=== PATIENT | female | born 1960 | race Caucasian/White ===

== ENCOUNTER 2017-07-03 09:19 | Outpatient (CLI) | payer BC | END 2017-07-03 09:20 | disposition home or self-care (01) | LOC: BICMAMMO 09:19 | PROVIDERS: ATTEND Internal Medicine Hematology & Oncology | DX: C50.512 Malignant neoplasm of lower-outer quadrant of left female breast (principal) | CPT/HCPCS: 77066; G0279 ==

== ENCOUNTER 2018-07-07 08:12 | Outpatient (CLI) | payer BC ==
--- NOTE | 2018-07-08 15:32 | MMO ---
MAMMO Bilat Diag [facility]. CLINICAL HISTORY: Patient is 58 years old and is seen for diagnostic exam. The patient has the following family history of breast cancer: mother, at age 58 and maternal grandmother, at age 91. The patient has a history of Segmental Mastectomy procedure revealed invasive ductal left breast carcinoma in July,; Ultrasound Guided Core Biopsy procedure revealed invasive ductal left breast carcinoma in June, and malignant (generic) in the left breast at age 55. The patient has a history of right Stereotatic Biopsy in 2017 - benign, left Ultrasound Guided Core Biopsy in June, and left Lumpectomy in June, - malignant. VIEWS: The views performed were: bilateral craniocaudal with tomosynthesis; bilateral mediolateral oblique with tomosynthesis; and bilateral mediolateral. FILMS COMPARED: The present examination has been compared to prior imaging studies performed at [facility] on 01/29/2000, 10/27/2000, 11/20/2001, 02/02/2003, 02/03/2003, 09/22/2003, 02/14/2005, 05/28/2006, 10/01/2007, 02/14/2009, 08/27/2012, 04/05/2014, 06/20/2015, 06/22/2015, 06/25/2016 and 07/03/2017. MAMMOGRAM FINDINGS: There are scattered fibroglandular densities. Finding 1: There is a stable biopsy clip seen in the right breast. Finding 2: There is a stable post-surgical scar seen in the left breast. Finding 3: No suspicious calcifications or masses are seen. IMPRESSION: ALL ABOVE FINDINGS ARE BENIGN. A ROUTINE FOLLOW-UP MAMMOGRAM IN 1 YEAR IS RECOMMENDED. THE RESULTS OF THIS EXAM WERE SENT TO THE PATIENT. ACR BI-RADS Category 2 - Benign finding MAMMOGRAPHY NOTE: 1. A negative mammogram report should not delay a biopsy if a dominant of clinically suspicious mass is present. 2. Approximately 10% to 15% of breast cancers are not detected by mammography. 3. Adenosis and dense breasts may obscure an underlying neoplasm.
== END 2018-07-07 08:13 | disposition home or self-care (01) ==
LOC: BICMAMMO 08:12
PROVIDERS: ATTEND Internal Medicine Hematology & Oncology
DX: Z08 Encounter for follow-up examination after completed treatment for malignant neoplasm (principal); R92.2 Inconclusive mammogram; Z85.3 Personal history of malignant neoplasm of breast; Z98.890 Other specified postprocedural states; Z80.3 Family history of malignant neoplasm of breast
CPT/HCPCS: 77066; G0279

== ENCOUNTER 2019-07-20 08:15 | Outpatient (CLI) | payer BC ==
--- NOTE | 2019-07-20 08:55 | MMO ---
Bilateral MAMMO Bilat Diag [facility]. CLINICAL HISTORY: Patient is 59 years old and is seen for diagnostic exam. The patient has the following family history of breast cancer: mother, at age 58 and maternal grandmother, at age 91. The patient has a history of Segmental mastectomy. procedure revealed invasive ductal left breast carcinoma in July,; Ultrasound guided core biopsy procedure revealed invasive ductal left breast carcinoma in June, and malignant (generic) in the left breast at age 55. The patient has a history of right Stereotatic Biopsy in 2017 - benign, left Ultrasound Guided Core Biopsy in June, and left Lumpectomy in June, - malignant. VIEWS: The views performed were: bilateral craniocaudal with tomosynthesis; bilateral mediolateral oblique with tomosynthesis; and bilateral mediolateral with tomosynthesis. FILMS COMPARED: The present examination has been compared to prior imaging studies performed at [facility] on 06/25/2016, 07/03/2017 and 07/07/2018. This study has been interpreted with the assistance of computer-aided detection. MAMMOGRAM FINDINGS: There are scattered fibroglandular densities. Finding 1: There is an area of architectural distortion with associated post-surgical scar seen in the left breast. Finding 2: There is a stable post-surgical scar seen in the left breast. Finding 3: No suspicious calcifications or masses are seen. There are no suspicious masses, suspicious calcifications, or new areas of architectural distortion. IMPRESSION: THERE IS NO MAMMOGRAPHIC EVIDENCE OF MALIGNANCY. A ROUTINE FOLLOW-UP MAMMOGRAM IN 1 YEAR IS RECOMMENDED. THE RESULTS OF THIS EXAM WERE SENT TO THE PATIENT. ACR BI-RADS Category 2 - Benign finding MAMMOGRAPHY NOTE: 1. A negative mammogram report should not delay a biopsy if a dominant of clinically suspicious mass is present. 2. Approximately 10% to 15% of breast cancers are not detected by mammography. 3. Adenosis and dense breasts may obscure an underlying neoplasm. Reported by: JOSHUA MAHONEY MD Electonically Signed: [id number]
== END 2019-07-20 08:16 | disposition home or self-care (01) ==
LOC: BICMAMMO 08:15
PROVIDERS: ATTEND Internal Medicine Hematology & Oncology
DX: Z08 Encounter for follow-up examination after completed treatment for malignant neoplasm (principal); Z85.3 Personal history of malignant neoplasm of breast
CPT/HCPCS: 77066; G0279

== ENCOUNTER 2020-07-26 08:24 | Outpatient (CLI) | payer BC | END 2020-07-26 08:25 | disposition home or self-care (01) | LOC: BICMAMMO 08:24 | PROVIDERS: ATTEND Internal Medicine Hematology & Oncology | DX: C50.512 Malignant neoplasm of lower-outer quadrant of left female breast (principal) | CPT/HCPCS: 77066; G0279 ==

== ENCOUNTER 2020-10-12 10:38 | Inpatient (IN) | payer BC ==
[~2020-10-12 10:38] MED LIST: Iopamidol-370 76% 500 ML 1 ML ONE
[2020-10-12 11:58] LABS: #Monocytes 0.3 thou/uL (0.11-0.59); #Neutrophils 12.5 thou/uL (1.40-6.50); %Eosinophils 0.3 % (0.0-10.0); %Lymphocytes 7.2 % (21.0-51.0); %Monocytes 1.9 % (0.0-10.0); %Neutrophils 90.7 % (42.0-75.0); Hemoglobin 12.6 g/dL (12.0-16.0); Mean Corpuscular HGB CONC 32.7 g/dL (32.0-36.0); Mean Corpuscular Hemoglobin 29.6 pg (27.0-31.0); Mean Corpuscular Volume 90.5 fL (78.0-98.0); Mean Platelet Volume 7.5 fL (7.4-10.4); Platelet Count 311 thou/uL (130-400); RBC Distribution Width 11.7 % (11.5-14.5); Red Blood Cell (RBC) Count 4.27 mill/uL (4.20-5.40); White Blood Cell (WBC) Count 13.7 thou/uL (4.8-10.8)
[2020-10-12 12:22] LABS: ALT (SGPT) 39 U/L (8-55); AST (SGOT) 44 U/L (5-34); Albumin 3.6 g/dL (3.5-5.0); Alkaline Phosphatase 97 U/L (40-110); Anion Gap 18 mmol/L (10-20); BUN (Urea Nitrogen) 12 mg/dL (9.8-20.1); Bilirubin, Total 0.4 mg/dL (0.2-1.2); Calc. Creatinine Clearance 0 mL/min (70-130); Calcium 9.2 mg/dL (7.8-10.44); Carbon Dioxide 22 mmol/L (22-29); Chloride 98 mmol/L (98-107); Globulin 3.9 g/dL (2.4-3.5); Glucose 151 mg/dL (70-105); Lipase 18 U/L (8-78); Potassium 3.6 mmol/L (3.5-5.1); Protein, Total 7.5 g/dL (6.0-8.3); Sodium 134 mmol/L (136-145)
[2020-10-12] MEDS ORDERED: Dexamethasone 10 MG/ML VIAL ONE (13:39)
[2020-10-12] MEDS ORDERED: Ondansetron PF 4 MG/2 ML Vial IVP PRN (16:54)
[2020-10-12] MEDS ORDERED: Ondansetron ODT 4 MG TAB PO PRN (16:54)
[2020-10-12] MEDS ORDERED: Enoxaparin Sodium 40 MG/0.4 ML SYRINGE SC SCH (17:00)
[2020-10-12 18:22] VITALS: BMI 28.2
[2020-10-12] MEDS: Melatonin 3 MG TAB PO SCH (20:48)
[2020-10-12] MEDS: Acetaminophen 325 MG TAB PO PRN (21:12)
[2020-10-13] MEDS: Guaifenesin DM 100-10/5 ML UDCUP PO PRN ×4 (06:14→20:21)
[2020-10-13 06:30] LABS: Anion Gap 15 mmol/L (10-20); BUN (Urea Nitrogen) 12 mg/dL (9.8-20.1); Calc. Creatinine Clearance 102 mL/min (70-130); Calcium 9.6 mg/dL (7.8-10.44); Carbon Dioxide 22 mmol/L (22-29); Chloride 105 mmol/L (98-107); Glucose 167 mg/dL (70-105); Sodium 138 mmol/L (136-145)
[2020-10-13 06:32] LABS: Hemoglobin 13.9 g/dL (12.0-16.0); Mean Corpuscular Hemoglobin 29.1 pg (27.0-31.0); Mean Corpuscular Volume 90.9 fL (78.0-98.0); Mean Platelet Volume 7.4 fL (7.4-10.4); Platelet Count 335 thou/uL (130-400); RBC Distribution Width 11.8 % (11.5-14.5); Red Blood Cell (RBC) Count 4.76 mill/uL (4.20-5.40); White Blood Cell (WBC) Count 10.3 thou/uL (4.8-10.8)
[2020-10-13 06:48] LABS: Band 5 % (5-11); Lymphocytes 6 % (21-51); MDiff Complete? YES; Myelocyte 1 % (0-0); Neutrophil 88 % (42-75)
[2020-10-13] MEDS: Ascorbic Acid 500 mg Chewable Tablet PO SCH (09:09)
[2020-10-13] MEDS: Cholecalciferol 1,000 UNITS (25 MCG) TAB PO SCH (09:10)
[2020-10-13] MEDS: Enoxaparin Sodium 40 MG/0.4 ML SYRINGE SC SCH (09:10)
[2020-10-13] MEDS: Dexamethasone 4 mg/ml Vial SLOW IVP SCH (09:10)
[2020-10-13] MEDS: Zinc Sulfate 220 MG CAP PO SCH (09:10)
[2020-10-13] MEDS: Acetaminophen 325 MG TAB PO PRN (20:21)
[2020-10-13] MEDS: Melatonin 3 MG TAB PO SCH (20:21)
[2020-10-14] MEDS: Guaifenesin DM 100-10/5 ML UDCUP PO PRN ×2 (05:40→10:58)
[2020-10-14 06:55] LABS: #Lymphocytes 1.5 thou/uL (1.20-3.40); #Monocytes 0.7 thou/uL (0.11-0.59); #Neutrophils 12.4 thou/uL (1.40-6.50); %Basophils 0.1 % (0.0-1.0); %Eosinophils 0.2 % (0.0-10.0); %Monocytes 4.9 % (0.0-10.0); %Neutrophils 84.8 % (42.0-75.0); Hemoglobin 12.7 g/dL (12.0-16.0); Mean Corpuscular HGB CONC 33.7 g/dL (32.0-36.0); Mean Corpuscular Hemoglobin 30.3 pg (27.0-31.0); Mean Corpuscular Volume 89.7 fL (78.0-98.0); Mean Platelet Volume 7.4 fL (7.4-10.4); Platelet Count 377 thou/uL (130-400); RBC Distribution Width 11.6 % (11.5-14.5); Red Blood Cell (RBC) Count 4.19 mill/uL (4.20-5.40); White Blood Cell (WBC) Count 14.6 thou/uL (4.8-10.8)
[2020-10-14 07:13] LABS: Anion Gap 13 mmol/L (10-20); BUN (Urea Nitrogen) 17 mg/dL (9.8-20.1); Calc. Creatinine Clearance 105 mL/min (70-130); Calcium 9.1 mg/dL (7.8-10.44); Carbon Dioxide 26 mmol/L (22-29); Chloride 105 mmol/L (98-107); Glucose 198 mg/dL (70-105); Sodium 140 mmol/L (136-145)
[2020-10-14] MEDS: Ascorbic Acid 500 mg Chewable Tablet PO SCH (08:27)
[2020-10-14] MEDS: Cholecalciferol 1,000 UNITS (25 MCG) TAB PO SCH (08:28)
[2020-10-14] MEDS: Dexamethasone 4 mg/ml Vial SLOW IVP SCH (08:30)
[2020-10-14] MEDS: Zinc Sulfate 220 MG CAP PO SCH (08:30)
[2020-10-14] MEDS: Enoxaparin Sodium 40 MG/0.4 ML SYRINGE SC SCH (08:31)
[2020-10-14] MEDS: Anastrozole 1 MG TAB PO SCH (08:32)
[2020-10-14] MEDS: Benzonatate 100 MG CAP PO PRN (18:02)
[2020-10-14] MEDS: Melatonin 3 MG TAB PO SCH (22:14)
[2020-10-15 06:48] LABS: Hemoglobin 13.3 g/dL (12.0-16.0); Mean Corpuscular HGB CONC 33.7 g/dL (32.0-36.0); Mean Corpuscular Hemoglobin 30.3 pg (27.0-31.0); Mean Platelet Volume 7.6 fL (7.4-10.4); Platelet Count 427 thou/uL (130-400); RBC Distribution Width 11.6 % (11.5-14.5); White Blood Cell (WBC) Count 13.4 thou/uL (4.8-10.8)
[2020-10-15 07:08] LABS: Anion Gap 14 mmol/L (10-20); BUN (Urea Nitrogen) 21 mg/dL (9.8-20.1); Calc. Creatinine Clearance 98 mL/min (70-130); Calcium 9.3 mg/dL (7.8-10.44); Carbon Dioxide 27 mmol/L (22-29); Chloride 103 mmol/L (98-107); Glucose 158 mg/dL (70-105); Sodium 140 mmol/L (136-145)
[2020-10-15 07:46] LABS: Band 3 % (5-11); Lymphocytes 15 % (21-51); MDiff Complete? YES; Metamyelocyte 1 % (0-0); Monocytes 1 % (0-10); Neutrophil 80 % (42-75)
[2020-10-15] MEDS: Cholecalciferol 1,000 UNITS (25 MCG) TAB PO SCH (08:18)
[2020-10-15] MEDS: Benzonatate 100 MG CAP PO PRN ×3 (08:19→23:09)
[2020-10-15] MEDS: Dexamethasone 4 mg/ml Vial SLOW IVP SCH (08:19)
[2020-10-15] MEDS: Zinc Sulfate 220 MG CAP PO SCH (08:19)
[2020-10-15] MEDS: Anastrozole 1 MG TAB PO SCH (08:19)
[2020-10-15] MEDS: Enoxaparin Sodium 40 MG/0.4 ML SYRINGE SC SCH (08:19)
[2020-10-15] MEDS: Ascorbic Acid 500 mg Chewable Tablet PO SCH (08:19)
[2020-10-15] MEDS: Guaifenesin DM 100-10/5 ML UDCUP PO PRN (20:13)
[2020-10-15] MEDS: Melatonin 3 MG TAB PO SCH (20:13)
[2020-10-16 06:29] LABS: Hemoglobin 12.6 g/dL (12.0-16.0); Mean Corpuscular HGB CONC 32.1 g/dL (32.0-36.0); Mean Corpuscular Volume 90.4 fL (78.0-98.0); Mean Platelet Volume 7.3 fL (7.4-10.4); Platelet Count 456 thou/uL (130-400); RBC Distribution Width 11.3 % (11.5-14.5); Red Blood Cell (RBC) Count 4.36 mill/uL (4.20-5.40); White Blood Cell (WBC) Count 10.7 thou/uL (4.8-10.8)
[2020-10-16 06:45] LABS: Anion Gap 14 mmol/L (10-20); BUN (Urea Nitrogen) 20 mg/dL (9.8-20.1); Calc. Creatinine Clearance 102 mL/min (70-130); Calcium 8.9 mg/dL (7.8-10.44); Carbon Dioxide 27 mmol/L (22-29); Chloride 101 mmol/L (98-107); Glucose 137 mg/dL (70-105); Magnesium 2.1 mg/dL (1.6-2.6); Potassium 4.2 mmol/L (3.5-5.1); Sodium 138 mmol/L (136-145)
[2020-10-16 06:49] LABS: Band 5 % (5-11); Lymphocytes 12 % (21-51); MDiff Complete? YES; Monocytes 7 % (0-10); Myelocyte 3 % (0-0); Neutrophil 73 % (42-75)
[2020-10-16] MEDS: Cholecalciferol 1,000 UNITS (25 MCG) TAB PO SCH (08:18)
[2020-10-16] MEDS: Zinc Sulfate 220 MG CAP PO SCH (08:18)
[2020-10-16] MEDS: Benzonatate 100 MG CAP PO PRN ×2 (08:18→20:22)
[2020-10-16] MEDS: Ascorbic Acid 500 mg Chewable Tablet PO SCH (08:18)
[2020-10-16] MEDS: Enoxaparin Sodium 40 MG/0.4 ML SYRINGE SC SCH ×2 (08:18→20:21)
[2020-10-16] MEDS: Guaifenesin DM 100-10/5 ML UDCUP PO PRN ×2 (08:19→20:22)
[2020-10-16] MEDS: Dexamethasone 4 mg/ml Vial SLOW IVP SCH (08:19)
[2020-10-16] MEDS: Anastrozole 1 MG TAB PO SCH (08:19)
[2020-10-16] MEDS: Acetaminophen 325 MG TAB PO PRN (09:55)
[2020-10-16] MEDS ORDERED: Albuterol 200 PUFF (6.7GM INHALER) INH PRN (12:14)
[2020-10-16] MEDS: Albuterol 200 PUFF (6.7GM INHALER) INH SCH ×3 (15:32→22:35)
[2020-10-16] MEDS: Melatonin 3 MG TAB PO SCH (20:20)
[2020-10-16] MEDS: Mometasone 200 MCG/Formoterol 5 MCG 120 PUFF INHALER INH SCH (20:39)
[2020-10-17] MEDS: Albuterol 200 PUFF (6.7GM INHALER) INH SCH ×6 (03:52→20:39)
[2020-10-17 06:23] LABS: Hemoglobin 13.4 g/dL (12.0-16.0); Mean Corpuscular HGB CONC 33.6 g/dL (32.0-36.0); Mean Corpuscular Volume 89.2 fL (78.0-98.0); Mean Platelet Volume 7.3 fL (7.4-10.4); Platelet Count 490 thou/uL (130-400); RBC Distribution Width 11.3 % (11.5-14.5); Red Blood Cell (RBC) Count 4.47 mill/uL (4.20-5.40); White Blood Cell (WBC) Count 12.8 thou/uL (4.8-10.8)
[2020-10-17 06:39] LABS: Band 5 % (5-11); Eosinophils 2 % (0-10); Lymphocytes 19 % (21-51); MDiff Complete? YES; Metamyelocyte 1 % (0-0); Monocytes 4 % (0-10); Myelocyte 4 % (0-0); Neutrophil 65 % (42-75)
[2020-10-17 06:41] LABS: ALT (SGPT) 69 U/L (8-55); AST (SGOT) 24 U/L (5-34); Albumin 3.5 g/dL (3.5-5.0); Alkaline Phosphatase 82 U/L (40-110); Anion Gap 15 mmol/L (10-20); BUN (Urea Nitrogen) 18 mg/dL (9.8-20.1); Bilirubin, Total 0.4 mg/dL (0.2-1.2); CRP (Inflammatory) 1.51 mg/dL (= or < 0.5); Calc. Creatinine Clearance 97 mL/min (70-130); Calcium 9.3 mg/dL (7.8-10.44); Carbon Dioxide 27 mmol/L (22-29); Chloride 101 mmol/L (98-107); Globulin 3.4 g/dL (2.4-3.5); Glucose 148 mg/dL (70-105); Potassium 4.1 mmol/L (3.5-5.1); Protein, Total 6.9 g/dL (6.0-8.3); Sodium 139 mmol/L (136-145)
[2020-10-17] MEDS: Benzonatate 100 MG CAP PO PRN ×2 (08:33→20:18)
[2020-10-17] MEDS: Guaifenesin DM 100-10/5 ML UDCUP PO PRN ×2 (08:33→20:18)
[2020-10-17] MEDS: Cholecalciferol 1,000 UNITS (25 MCG) TAB PO SCH (08:33)
[2020-10-17] MEDS: Aspirin 81 mg Enteric Coated Tablet PO SCH (08:33)
[2020-10-17] MEDS: Zinc Sulfate 220 MG CAP PO SCH (08:33)
[2020-10-17] MEDS: Ascorbic Acid 500 mg Chewable Tablet PO SCH (08:33)
[2020-10-17] MEDS: Dexamethasone 4 mg/ml Vial SLOW IVP SCH (08:35)
[2020-10-17] MEDS: Acetaminophen 325 MG TAB PO PRN (08:35)
[2020-10-17] MEDS: Mometasone 200 MCG/Formoterol 5 MCG 120 PUFF INHALER INH SCH ×2 (08:36→20:30)
[2020-10-17] MEDS: Anastrozole 1 MG TAB PO SCH (08:37)
[2020-10-17] MEDS: Enoxaparin Sodium 40 MG/0.4 ML SYRINGE SC SCH ×2 (08:38→20:18)
[2020-10-17] MEDS: Melatonin 3 MG TAB PO SCH (20:18)
[2020-10-18] MEDS: Albuterol 200 PUFF (6.7GM INHALER) INH SCH ×3 (04:47→11:23)
[2020-10-18] MEDS: Mometasone 200 MCG/Formoterol 5 MCG 120 PUFF INHALER INH SCH (06:07)
[2020-10-18 06:46] LABS: Hemoglobin 12.8 g/dL (12.0-16.0); Mean Corpuscular HGB CONC 31.7 g/dL (32.0-36.0); Mean Corpuscular Hemoglobin 28.7 pg (27.0-31.0); Mean Corpuscular Volume 90.6 fL (78.0-98.0); Mean Platelet Volume 7.4 fL (7.4-10.4); Platelet Count 517 thou/uL (130-400); RBC Distribution Width 11.4 % (11.5-14.5); Red Blood Cell (RBC) Count 4.44 mill/uL (4.20-5.40); White Blood Cell (WBC) Count 13.2 thou/uL (4.8-10.8)
[2020-10-18 06:50] LABS: ALT (SGPT) 58 U/L (8-55); AST (SGOT) 21 U/L (5-34); Albumin 3.5 g/dL (3.5-5.0); Alkaline Phosphatase 78 U/L (40-110); Anion Gap 14 mmol/L (10-20); BUN (Urea Nitrogen) 19 mg/dL (9.8-20.1); Bilirubin, Total 0.4 mg/dL (0.2-1.2); Calc. Creatinine Clearance 98 mL/min (70-130); Calcium 9.2 mg/dL (7.8-10.44); Carbon Dioxide 29 mmol/L (22-29); Chloride 100 mmol/L (98-107); Globulin 3.1 g/dL (2.4-3.5); Glucose 137 mg/dL (70-105); Potassium 4.3 mmol/L (3.5-5.1); Protein, Total 6.6 g/dL (6.0-8.3); Sodium 139 mmol/L (136-145)
[2020-10-18] MEDS: Guaifenesin DM 100-10/5 ML UDCUP PO PRN (08:30)
[2020-10-18] MEDS: Cholecalciferol 1,000 UNITS (25 MCG) TAB PO SCH (08:30)
[2020-10-18] MEDS: Aspirin 81 mg Enteric Coated Tablet PO SCH (08:30)
[2020-10-18] MEDS: Zinc Sulfate 220 MG CAP PO SCH (08:30)
[2020-10-18] MEDS: Ascorbic Acid 500 mg Chewable Tablet PO SCH (08:30)
[2020-10-18] MEDS: Enoxaparin Sodium 40 MG/0.4 ML SYRINGE SC SCH (08:31)
[2020-10-18] MEDS: Benzonatate 100 MG CAP PO PRN (08:31)
[2020-10-18] MEDS: Anastrozole 1 MG TAB PO SCH (08:31)
[2020-10-18] MEDS: Dexamethasone 4 mg/ml Vial SLOW IVP SCH (08:31)
[2020-10-18 09:22] LABS: Band 5 % (5-11); Lymphocytes 17 % (21-51); MDiff Complete? YES; Metamyelocyte 6 % (0-0); Monocytes 3 % (0-10); Myelocyte 1 % (0-0); Neutrophil 68 % (42-75); Platelet Morphology Comment Appears Increased; RBC Morphology Normal
[2020-10-18 11:45] VITALS: BP 137/88; TEMP 97.6
== END 2020-10-18 13:08 | disposition home or self-care (01) | DRG 871 ==
LOC: ERS 10:38 → T4-B 16:22 → OBSVTOIN 18:21
PROVIDERS: ADMIT Internal Medicine; ATTEND Internal Medicine
PROC: 8E0ZXY6 Isolation (ICD-10-PCS; principal; 2020-10-12)
DX: A41.89 Other specified sepsis (principal); U07.1 COVID-19; J12.82 Pneumonia due to coronavirus disease 2019; J96.01 Acute respiratory failure with hypoxia; I31.3 Pericardial effusion (noninflammatory); E87.1 Hypo-osmolality and hyponatremia; R65.20 Severe sepsis without septic shock; K44.9 Diaphragmatic hernia without obstruction or gangrene; E66.9 Obesity, unspecified; R79.89 Other specified abnormal findings of blood chemistry; N18.2 Chronic kidney disease, stage 2 (mild); R94.5 Abnormal results of liver function studies; Z85.3 Personal history of malignant neoplasm of breast; Z90.12 Acquired absence of left breast and nipple; Z79.811 Long term (current) use of aromatase inhibitors; Z68.28 Body mass index [BMI] 28.0-28.9, adult
CPT/HCPCS: 36415; 71045; 71275; 80048; 80053; 82728; 83605; 83690; 83735; 83880; 84484; 85025; 85379; 86140; 87040; 93005; 96374; G0378; J1100; J1650; Q9967

== ENCOUNTER 2022-09-06 09:59 | Outpatient (CLI) | payer BC | END 2022-09-06 10:00 | disposition home or self-care (01) | LOC: BICMAMMO 09:59 | PROVIDERS: ATTEND Internal Medicine Hematology & Oncology | DX: Z12.31 Encounter for screening mammogram for malignant neoplasm of breast (principal); Z80.3 Family history of malignant neoplasm of breast; Z90.12 Acquired absence of left breast and nipple; Z91.89 Other specified personal risk factors, not elsewhere classified | CPT/HCPCS: 77063; 77067 ==

== ENCOUNTER 2023-11-13 08:32 | Outpatient (CLI) | payer BC | END 2023-11-13 08:33 | disposition home or self-care (01) | LOC: BICMAMMO 08:32 | PROVIDERS: ATTEND Internal Medicine Hematology & Oncology | DX: Z12.31 Encounter for screening mammogram for malignant neoplasm of breast (principal); N64.89 Other specified disorders of breast; Z80.3 Family history of malignant neoplasm of breast; Z85.3 Personal history of malignant neoplasm of breast; Z91.89 Other specified personal risk factors, not elsewhere classified; Z98.890 Other specified postprocedural states | CPT/HCPCS: 77063; 77067 ==

== ENCOUNTER 2023-11-19 07:55 | Outpatient (CLI) | payer BC | END 2023-11-19 07:56 | disposition home or self-care (01) | LOC: BICMAMMO 07:55 | PROVIDERS: ATTEND Internal Medicine Hematology & Oncology | DX: N64.89 Other specified disorders of breast (principal) | CPT/HCPCS: G0279 ==

== ENCOUNTER 2024-11-24 08:59 | Outpatient (CLI) | payer BC | END 2024-11-24 09:00 | disposition home or self-care (01) | LOC: BICMAMMO 08:59 | PROVIDERS: ATTEND Internal Medicine Hematology & Oncology | DX: Z12.31 Encounter for screening mammogram for malignant neoplasm of breast (principal); Z80.3 Family history of malignant neoplasm of breast; Z86.000 Personal history of in-situ neoplasm of breast; Z98.890 Other specified postprocedural states | CPT/HCPCS: 77063; 77067 ==

== ENCOUNTER 2025-01-20 11:30 | Outpatient (CLI) | payer BC | END 2025-01-20 11:31 | disposition home or self-care (01) | LOC: BICMAMMO 11:30 | PROVIDERS: ATTEND Emergency Medicine | DX: Z13.820 Encounter for screening for osteoporosis (principal); M85.89 Other specified disorders of bone density and structure, multiple sites | CPT/HCPCS: 77080 ==

== ENCOUNTER 2025-02-01 08:28 | Outpatient (CLI) | payer BC ==
[2025-02-01 09:03] LABS: Estimated GFR - POC 63.0
[2025-02-01] MEDS ORDERED: Iopamidol 370 76% 100 ML VIAL ONE (10:14)
== END 2025-02-01 08:29 | disposition home or self-care (01) ==
LOC: CT 08:28
PROVIDERS: ATTEND Obstetrics & Gynecology Gynecologic Oncology
DX: N95.0 Postmenopausal bleeding (principal); R19.09 Other intra-abdominal and pelvic swelling, mass and lump; K38.8 Other specified diseases of appendix; N94.89 Other specified conditions associated with female genital organs and menstrual cycle
CPT/HCPCS: 36415; 74177; 82565; Q9967